=== PATIENT | female | born 1980 | race Two or more races ===

== ENCOUNTER 2018-01-13 05:25 | Emergency (ER) | payer OTHER ==
[~2018-01-13] VITALS: Ht 167.6 cm; Wt 62.2 kg
[2018-01-13 05:41] VITALS: BP 159/112
== END 2018-01-13 06:44 | disposition home or self-care (01) ==
LOC: EME 05:25 → EDBD 05:25 → EME 06:44
DX: R53.83 Other fatigue (principal); Z72.0 Tobacco use